=== PATIENT | female | born 1955 | race Caucasian/White ===

== ENCOUNTER 2017-08-17 10:55 | Day surgery (SDC) | payer MEDICAID ==
[2017-08-14 11:09] LABS: HEMATOCRIT 39.8 % (36.0-48.0); HEMOGLOBIN 13.5 g/dL (12-16); MCH 33.7 pg (26.0-34.0); MCHC 33.9 g/dL (31.0-37.0); MCV 99.3 fL (80.0-100.0); MEAN PLATELET VOLUME 10.3 fL (7.4-10.4); RBC 4.01 10x6/uL (4.00-5.40); RDW 11.9 % (11.5-14.5); WBC 8.1 10x3/uL (4.8-10.8)
[~2017-08-17] VITALS: Ht 157.5 cm; Wt 80.5 kg
--- NOTE | ~2017-08-17 | OP ---
PATIENT NAME: JAYE PURI MEDICAL RECORD: [id number] :55 LOCATION:D.OPS ADMISSION DATE: SURGEON: DOMINGA YUSUF MD DATE OF OPERATION: 08/17/2017 PREOPERATIVE DIAGNOSIS: Rotator cuff tear of the right shoulder with impingement syndrome. POSTOPERATIVE DIAGNOSES: Rotator cuff tear of the right shoulder with impingement syndrome. Severe biceps tendinitis. PROCEDURES: 1. Arthroscopic rotator cuff repair. 2. Arthroscopic biceps tenodesis. 3. Arthroscopic distal clavicle excision - through separate incision of 1 cm. 4. Arthroscopic subacromial decompression, acromioplasty, and bursectomy. SURGEON: Dominga Yusuf MD ANESTHESIA: General. INTRAOPERATIVE COMPLICATIONS: None. SUMMARY OF PATHOLOGIC FINDINGS: The patient had a severely torn rotator cuff tear with split type T that required [id number] reapproximation as did the primary tear and this also required double row fixation i.e., Arthrex SpeedBridge. OPERATIVE SUMMARY IN DETAIL: After obtaining the appropriate preoperative orthopedic surgery consent as well as anesthetic consultation, evaluation, and clearance, the patient was brought to the operating room and placed on the operating table in supine position. After adequate general laryngeal mask airway was administered, the patient was placed in a left lateral decubitus position. All pressure points were well padded to include down leg peroneal nerve pad as well as axillary roll. The patient was held firmly to the operating table using the vacuum pack suction system. Right upper extremity and shoulder were then prepped and draped in routine sterile fashion. Arm was held in the Arthrex traction boom at 30 degrees of forward flexion, 30 degrees of abduction, and 10 pounds of traction laterally. Arthroscopy was established in the glenohumeral joint from a posterior portal. Anterior portal was established in the anterior safe interval. Diagnostic arthroscopy did reveal the above findings. Transrotator cuff portal was created to clean up the rotator cuff tear and prepare the supraspinatus tendinous footprint for reapproximation. Attention was then turned to the subacromial space. A 5-0 barrel bur was utilized to perform acromioplasty at the level of acromioclavicular joint after denudement of the undersurface of the acromion and release of coracoacromial ligament. Under direct arthroscopic visualization through an anterior portal separately, distal clavicle was excised for 1 cm. Having completed this, attention was turned to the rotator cuff. The secondary tear leaflet was reapproximated [id number] using #2 FiberWire. Bnvv-il-[id number] reapproximation was then carried out in the intrasubstance tear of the supraspinatus. This was reapproximated [id number] again with a #2 FiberWire. The distal insertion site was then reapproximated with an Arthrex SpeedBridge with the medial row juxtaposed to the chondral surface and the lateral row across the greater tuberosity. Having completed this, a secondary small dog ear was closed and OPERATIVE REPORT [id number] JAYE PURI anchored secondarily with 4.75 SwiveLock from [employer] using the tails from the anterolateral SpeedBridge suture anchor. Please note that, prior to the rotator cuff tear, the biceps was grasped with FiberTape and it was tenodesed proximally in the bicipital groove. The rotator cuff was then fixed as described above. Wounds were irrigated and closed in the usual fashion. Sterile dressings were applied. The patient was awakened and taken to recovery room in stable condition. All final needle and sponge counts were correct. TRANSINT:[id number] Voice Confirmation ID: [id number] DOCUMENT ID: [id number] PARAMJIT ALVARES, DOMINGA FREEMAN at 1842 CC: [id number] DICTATION DATE: 08/17/17 1612 REFINING SUPERVISOR: 08/17/17 1707 [facility] 08/17/17 [id number] [place] [address]
[~2017-08-17 10:55] MED LIST: ALENDRONATE SOD70 MG PO; BAYER CHEWABLE81 MG PO; CLARITIN 10 MG10 MG PO; CYCLOBENZAPRINE10 MG PO; LISINOPRIL10 MG PO; PERCOCET 10/3251 TA1 PO; PROTONIX40 MG PO; XANAX1 MG PO; ZOCOR20 MG PO
[2017-08-17 11:57] VITALS: BP 107/65; Ht 157.5 cm; Wt 80.5 kg
[2017-08-17] MEDS ORDERED: DILAUDID4 MG PO (16:06)
== END 2017-08-17 18:15 | disposition home or self-care (01) ==
LOC: D.OPS 10:55 → D.PAN 12:45 → D.OPS 14:30 → D.PAN 14:45 → D.OPS 14:45
PROVIDERS: Anesthesiology
DX: M75.101 Unspecified rotator cuff tear or rupture of right shoulder, not specified as traumatic (principal); F17.200 Nicotine dependence, unspecified, uncomplicated; I10 Essential (primary) hypertension; G47.30 Sleep apnea, unspecified; K21.9 Gastro-esophageal reflux disease without esophagitis; M75.41 Impingement syndrome of right shoulder; Z01.812 Encounter for preprocedural laboratory examination

== ENCOUNTER 2017-12-24 08:30 | Day surgery (SDC) | payer MEDICAID ==
[2017-12-23 09:54] LABS: HEMATOCRIT 41.5 % (36.0-48.0); HEMOGLOBIN 14.4 g/dL (12-16); MCH 33.3 pg (26.0-34.0); MCHC 34.7 g/dL (31.0-37.0); MCV 95.8 fL (80.0-100.0); MEAN PLATELET VOLUME 10.4 fL (7.4-10.4); RBC 4.33 10x6/uL (4.00-5.40); RDW 11.9 % (11.5-14.5); WBC 9.5 10x3/uL (4.8-10.8)
[2017-12-23 10:02] LABS: CALC OSMOLALITY 276 mosm/kg (275-300); CALCIUM 8.6 mg/dL (8.5-10.1); CARBON DIOXIDE 30.7 mmol/L (21.0-32.0); CHLORIDE - SERUM 101 mmol/L (98-107); CREATININE - SERUM 0.7 mg/dL (0.6-1.3); GLUCOSE 91 mg/dL (74-106); POTASSIUM - SERUM 4.1 mmol/L (3.5-5.1); SODIUM 138 mmol/L (136-145); UREA NITROGEN 15 mg/dL (7-18); eGFR NON AFRICAN AMERICAN 90 mL/min (90-120)
[~2017-12-24] VITALS: Ht 157.5 cm; Wt 78.2 kg
--- NOTE | ~2017-12-24 | OP ---
PATIENT NAME: JAYE PURI MEDICAL RECORD: [id number] :55 LOCATION:D.OPS ADMISSION DATE: SURGEON: DOMINGA YUSUF MD DATE OF OPERATION: 12/24/2017 PREOPERATIVE DIAGNOSES: 1. Impingement syndrome of the left shoulder with rotator cuff tear. 2. Acromioclavicular arthritis. POSTOPERATIVE DIAGNOSES: 1. Impingement syndrome of the left shoulder with rotator cuff tear. 2. Acromioclavicular arthritis. PROCEDURE: 1. Arthroscopic rotator cuff repair. 2. Arthroscopic distal clavicle excision done through separate incision. 3. Arthroscopic subacromial decompression, acromioplasty and bursectomy. SURGEON: Dominga Yusuf MD ANESTHESIA: General. INTRAOPERATIVE COMPLICATIONS: None. SUMMARY OF PATHOLOGIC FINDINGS: Consistent with the preoperative diagnosis. The patient had full thickness rotator cuff tearing at the anterior aspect of the supraspinatus tendinous footprint with downward sloping of acromion and excoriation of the coracoacromial ligament as well as grade IV chondromalacia of the distal clavicle. OPERATIVE SUMMARY IN DETAIL: After obtaining the appropriate preoperative orthopedic surgery consent as well as anesthetic consultation, evaluation, and clearance, the patient was brought to the operating room and placed on the operating table in supine position. After general laryngeal mask airway was administered, the patient was placed in right lateral decubitus position. All pressure points well padded to include down leg peroneal pad as well as axillary roll. The patient was held firmly to the operating table using the vacuum pack suction system. Left upper extremity and shoulder were then prepped and draped in routine sterile fashion. The arm was held in the Arthrex traction boom at 30 degrees of forward flexion, 30 degrees of abduction, 10 pounds of traction laterally. Arthroscopy was established in the glenohumeral joint from the posterior portal, anterior portal was established in the anterior safe interval under direct arthroscopic visualization. Diagnostic arthroscopy showed the patient to have the full thickness rotator cuff tearing. Transrotator cuff tear arthroscopic portal was created for debridement of the undersurface of the rotator cuff tearing as well as to decorticate portions of the supraspinatus tendinous footprint. Having completed this, attention was turned to the subacromial space. While in the subacromial space, [place] tissue ablation system was utilized to denude the undersurface of acromion of all soft tissue elements and release the coracoacromial ligament. A 5-0 barrel bur was used to perform acromioplasty at the level of acromioclavicular joint done through a separate anterior arthroscopic portal under direct arthroscopic visualization. Distal clavicle was excised to 1 cm. Attention was then returned to the rotator cuff. All OPERATIVE REPORT [id number] JAYE PURI KOURTNEY bursa was taken down anteriorly, posteriorly, laterally as well as superiorly. Further decortication was carried out for reapproximation of the rotator cuff footprint. Inverted #2 FiberTape was then placed and anchored laterally using a 5.5 SwiveLock from [employer]. Having completed this, arthroscopy portals were closed in routine interrupted fashion using 4-0 Prolene. Sterile dressings were applied. The patient was awakened, taken to recovery room in stable condition. All final needle and sponge counts were correct. TRANSINT:[id number] Voice Confirmation ID: [id number] DOCUMENT ID: [id number] PARAMJIT ALVARES, DOMINGA FREEMAN at 1528 CC: [id number] DICTATION DATE: 12/24/17 1235 SUPERVISOR CEREAL: 12/24/17 1248 [facility] [address] [place] [address]
[~2017-12-24 08:30] MED LIST changes: +DILAUDID4 MG PO
[2017-12-24 10:13] VITALS: BP 122/76; Ht 157.5 cm; Wt 78.2 kg
[2017-12-24] MEDS ORDERED: DILAUDID8 MG PO (12:32)
[2018-01-04] MEDS ORDERED: FUROSEMIDE20 MG PO ×2 (17:31→17:32)
== END 2017-12-24 14:20 | disposition home or self-care (01) ==
LOC: D.OPS 08:30 → D.PAN 10:45 → D.OPS 13:50 → D.PAN 14:00 → D.OPS 14:00
PROVIDERS: Anesthesiology
DX: M75.42 Impingement syndrome of left shoulder (principal); M75.122 Complete rotator cuff tear or rupture of left shoulder, not specified as traumatic; M13.812 Other specified arthritis, left shoulder; Z01.812 Encounter for preprocedural laboratory examination

== ENCOUNTER → 2017-12-31 12:20 | Outpatient (CLI) | payer MEDICAID ==
[2017-12-24 10:13] VITALS: BMI 31.5
[~2017-12-31 12:20] MED LIST changes: +DILAUDID8 MG PO; +FUROSEMIDE20 MG PO
== END | disposition home or self-care (01) ==
LOC: D.US 12:20
DX: R60.0 Localized edema (principal)

== ENCOUNTER → 2018-01-04 | Emergency (ER) | payer MEDICAID ==
[2018-01-04 12:49] VITALS: BP 143/093; Ht 157.5 cm
[2018-01-04 13:11] LABS: BASOPHILS 0.4 % (0-2); EOSINOPHILS 3.2 % (0-7); HEMATOCRIT 36.8 % (36.0-48.0); HEMOGLOBIN 12.7 g/dL (12-16); IMMATURE GRANULOCYTES 0.3 % (0-5); LYMPHOCYTES 39.8 % (15-50); MCH 33.2 pg (26.0-34.0); MCHC 34.5 g/dL (31.0-37.0); MCV 96.1 fL (80.0-100.0); MEAN PLATELET VOLUME 9.9 fL (7.4-10.4); MONOCYTES 6.8 % (2-11); NEUTROPHILS 49.5 % (40-80); PLATELET COUNT 299 10x3/uL (130-400); RBC 3.83 10x6/uL (4.00-5.40); RDW 12.2 % (11.5-14.5); WBC 9.7 10x3/uL (4.8-10.8)
[2018-01-04 13:24] LABS: ALBUMIN 3.3 g/dL (3.4-5.0); ALKALINE PHOSPHATASE 72 U/L (46-116); ALT (SGPT) 41 U/L (10-68); CALC OSMOLALITY 277 mosm/kg (275-300); CALCIUM 8.3 mg/dL (8.5-10.1); CARBON DIOXIDE 30.1 mmol/L (21.0-32.0); CHLORIDE - SERUM 101 mmol/L (98-107); CREATININE - SERUM 0.6 mg/dL (0.6-1.3); GLUCOSE 103 mg/dL (74-106); POTASSIUM - SERUM 3.7 mmol/L (3.5-5.1); PROTEIN - SERUM 6.4 g/dL (6.4-8.2); SODIUM 140 mmol/L (136-145); UREA NITROGEN 9 mg/dL (7-18); eGFR NON AFRICAN AMERICAN > 90 mL/min (90-120)
[2018-01-04 13:31] LABS: PRO BNP 69 pg/mL (0-125)
== END | disposition home or self-care (01) ==
LOC: D.ER 12:41
PROVIDERS: Family Medicine
DX: R60.9 Edema, unspecified (principal); R06.00 Dyspnea, unspecified; I10 Essential (primary) hypertension; F17.200 Nicotine dependence, unspecified, uncomplicated